=== PATIENT | male | born 1965 | race Caucasian/White ===

== ENCOUNTER 2020-07-02 13:15 | Emergency (ER) | payer MEDICAID ==
[~2020-07-02] VITALS: Ht 182.9 cm; Wt 92.5 kg
[2020-07-02] MEDS ORDERED: cloNIDine HCL 0.1 MG TAB PO ONE (14:15)
[2020-07-02 18:17] VITALS: BP 176/104
== END 2020-07-02 18:22 | disposition home or self-care (01) ==
LOC: ER 13:15
DX: J06.9 Acute upper respiratory infection, unspecified (principal); Z20.828 Contact with and (suspected) exposure to other viral communicable diseases
CPT/HCPCS: 36415; 71045; 87426

== ENCOUNTER 2022-02-14 07:48 | Emergency (ER) | payer MEDICAID ==
[~2022-02-14] VITALS: Ht 182.9 cm; Wt 102.5 kg
[2022-02-14 08:43] LABS: Urine Bacteria MOD /hpf (None Seen); Urine Blood Negative /uL (Negative); Urine Mucus FEW (None Seen); Urine Specific Gravity 1.023 (1.001-1.035); Urine WBC 1 /hpf (0 - 3)
[2022-02-14 08:45] LABS: Basophils # (auto) 0 10 ^3/uL (0-0.2); Basophils % (auto) 0.4 % (0.0-2.0); Eosinophils # (auto) 0 10 ^3/uL (0-0.8); Eosinophils % (auto) 0.2 % (0.0-7.0); Hematocrit 50.1 % (41.0-53.0); Hemoglobin 17.1 g/dL (13.5-17.5); Lymphocytes # (auto) 2.6 10 ^3/uL (0.4-5.4); Lymphocytes % (auto) 23.7 % (10.0-50.0); Mean Corpuscular Volume 88.1 fL (80.0-100.0); Monocytes # (auto) 1.2 10 ^3/uL (0-1.3); Monocytes % (auto) 10.6 % (0.0-12.0); Neutrophils # (auto) 7.1 10 ^3/uL (1.6-8.6); Neutrophils % (auto) 65.1 % (37.0-80.0); Red Blood Cells 5.69 10^6/uL (4.5-5.90); Red Cell Distribution Width 13.8 % (11.8-14.3); White Blood Cell 10.9 10^3/uL (4.4-10.8)
[2022-02-14 08:57] LABS: Amphetamine Screen, Urine NEGATIVE (NEGATIVE); Barbiturate Scree,Urine NEGATIVE (NEGATIVE); Benzodiazephine Screen, Urine NEGATIVE (NEGATIVE); Cannabinoid Screen, Urine POSITIVE (NEGATIVE); Cocaine Screen, Urine NEGATIVE (NEGATIVE); Opiate Scree,Urine NEGATIVE (NEGATIVE); Phencyclidine Screen, Urine NEGATIVE (NEGATIVE)
[2022-02-14 09:02] LABS: Albumin 4.6 g/dL (3.4-5.0); Calcium 9.5 mg/dL (8.5-10.1); Potassium 3.1 mmol/L (3.5-5.1)
[2022-02-14 09:06] LABS: Bilirubin, Total 1.2 mg/dL (0.2-1.0); Total Protein 8.3 g/dL (6.4-8.2)
[2022-02-14] MEDS ORDERED: PRE5T PO (10:53)
[2022-02-14 13:41] VITALS: BP 116/84
== END 2022-02-14 13:46 | disposition home or self-care (01) ==
LOC: ER 07:48
DX: R06.02 Shortness of breath (principal); J06.9 Acute upper respiratory infection, unspecified; I10 Essential (primary) hypertension
CPT/HCPCS: 36415; 71045; 80053; 80307; 81001; 83880; 84484; 85025; 85379; 93005

== ENCOUNTER 2022-05-23 13:21 | Emergency (ER) | payer MEDICAID ==
[~2022-05-23] VITALS: Ht 182.9 cm; Wt 105.5 kg
[~2022-05-23 13:21] MED LIST: PRE5T PO
[2022-05-23 14:02] VITALS: BP 134/95
[2022-05-23] MEDS ORDERED: SUMAtriptan SUCCINATE 6 MG/0.5 ML VL SC ONE (14:45)
[2022-05-23] MEDS ORDERED: SUMA50TA2 PO (15:24)
== END 2022-05-23 15:33 | disposition home or self-care (01) ==
LOC: ER 13:21
DX: G44.209 Tension-type headache, unspecified, not intractable (principal); I10 Essential (primary) hypertension; K21.9 Gastro-esophageal reflux disease without esophagitis
CPT/HCPCS: 70450; 96372; 99284; J3030

== ENCOUNTER 2022-09-25 09:21 | Emergency (ER) | payer MEDICAID ==
[~2022-09-25] VITALS: Ht 182.9 cm; Wt 100.0 kg
[~2022-09-25 09:21] MED LIST changes: +SUMA50TA2 PO
[2022-09-25 10:20] LABS: Albumin 4.7 g/dL (3.4-5.0); Calcium 9.9 mg/dL (8.5-10.1); Potassium 3.1 mmol/L (3.5-5.1)
[2022-09-25 10:23] LABS: Basophils # (auto) 0 10 ^3/uL (0-0.2); Basophils % (auto) 0.3 % (0.0-2.0); Eosinophils # (auto) 0 10 ^3/uL (0-0.8); Eosinophils % (auto) 0.2 % (0.0-7.0); Hematocrit 46.8 % (41.0-53.0); Hemoglobin 16.5 g/dL (13.5-17.5); Lymphocytes # (auto) 2.4 10 ^3/uL (0.4-5.4); Lymphocytes % (auto) 19.9 % (10.0-50.0); Mean Corpuscular Hemoglobin 30.8 pg (28.0-32.0); Mean Corpuscular Hgb Conc. 35.2 g/dL (32.0-36.0); Mean Corpuscular Volume 87.4 fL (80.0-100.0); Monocytes # (auto) 1.1 10 ^3/uL (0-1.3); Monocytes % (auto) 9.5 % (0.0-12.0); Neutrophils # (auto) 8.5 10 ^3/uL (1.6-8.6); Neutrophils % (auto) 70.1 % (37.0-80.0); Nucleated Red Blood Cells % 0.1 %; Red Blood Cells 5.35 10^6/uL (4.5-5.90); Red Cell Distribution Width 13.9 % (11.8-14.3); White Blood Cell 12.2 10^3/uL (4.4-10.8)
[2022-09-25 10:25] LABS: Bilirubin, Total 1.4 mg/dL (0.2-1.0); Total Protein 7.8 g/dL (6.4-8.2)
[2022-09-25] MEDS ORDERED: ALBUAER3 IN (11:12)
[2022-09-25] MEDS ORDERED: PRED20TA2 PO (11:12)
[2022-09-25] MEDS ORDERED: AZIT250T9 PO (11:12)
[2022-09-25] MEDS ORDERED: AZITHROMYCIN 250 MG TAB PO ONE (11:15)
[2022-09-25] MEDS ORDERED: predniSONE 20 MG TAB PO ONE (11:15)
[2022-09-25 11:17] LABS: Urine Bacteria NONE SEEN /hpf (None Seen); Urine Blood Negative /uL (Negative); Urine Hyaline Cast FEW /lpf (0 - 2); Urine Mucus FEW (None Seen); Urine Specific Gravity 1.032 (1.001-1.035); Urine WBC 3 /hpf (0 - 3)
[2022-09-25 12:51] VITALS: BP 142/99
== END 2022-09-25 12:53 | disposition home or self-care (01) ==
LOC: ER 09:21
DX: J06.9 Acute upper respiratory infection, unspecified (principal); I10 Essential (primary) hypertension; F41.9 Anxiety disorder, unspecified
CPT/HCPCS: 36415; 71045; 80053; 81001; 83880; 84484; 85025; 93005; 99285; J7512

== ENCOUNTER 2023-02-03 12:39 | Emergency (ER) | payer MEDICAID ==
[~2023-02-03] VITALS: Ht 182.9 cm; Wt 100.0 kg
[~2023-02-03 12:39] MED LIST changes: +ALBUAER3 IN; +AZIT-43 PO; +PRED20TA2 PO
[2023-02-03 12:51] VITALS: BP 165/105
[2023-02-03] MEDS ORDERED: SODIUM CHLORIDE 0.9% 1,000 ML IV ONE (13:00)
[2023-02-03 13:06] LABS: Basophils # (auto) 0 10 ^3/uL (0-0.2); Basophils % (auto) 0.3 % (0.0-2.0); Eosinophils # (auto) 0 10 ^3/uL (0-0.8); Hemoglobin 16.5 g/dL (13.5-17.5); Lymphocytes # (auto) 2.6 10 ^3/uL (0.4-5.4); Mean Corpuscular Hemoglobin 30.1 pg (28.0-32.0); Mean Corpuscular Volume 91.2 fL (80.0-100.0); Monocytes % (auto) 7.4 % (0.0-12.0); Neutrophils # (auto) 10.1 10 ^3/uL (1.6-8.6); Neutrophils % (auto) 73.3 % (37.0-80.0); Nucleated Red Blood Cells % 0.1 %; Red Blood Cells 5.48 10^6/uL (4.5-5.90); White Blood Cell 13.7 10^3/uL (4.4-10.8)
[2023-02-03 13:26] LABS: Albumin 5.1 g/dL (3.4-5.0); Calcium 10.1 mg/dL (8.5-10.1); Potassium 3.2 mmol/L (3.5-5.1)
[2023-02-03 13:29] LABS: BUN/Creatinine Ratio 13.5 (10.0-20.0); Bilirubin, Total 1.2 mg/dL (0.2-1.0); Total Protein 8.1 g/dL (6.4-8.2)
[2023-02-03 14:19] LABS: Urine Bacteria NONE SEEN /hpf (None Seen); Urine Blood Negative /uL (Negative); Urine Mucus FEW (None Seen); Urine Specific Gravity 1.032 (1.001-1.035); Urine WBC 3 /hpf (0 - 3)
[2023-02-03 14:28] LABS: Alcohol, Urine < 3.0 mg/dL (0-10); Barbiturate Scree,Urine NEGATIVE (NEGATIVE)
[2023-02-03 14:37] LABS: Amphetamine Screen, Urine NEGATIVE (NEGATIVE); Benzodiazephine Screen, Urine NEGATIVE (NEGATIVE); Cannabinoid Screen, Urine POSITIVE (NEGATIVE); Cocaine Screen, Urine NEGATIVE (NEGATIVE); Opiate Scree,Urine NEGATIVE (NEGATIVE); Phencyclidine Screen, Urine NEGATIVE (NEGATIVE)
== END 2023-02-03 15:35 | disposition left against medical advice (07) ==
LOC: ER 12:39
DX: E87.6 Hypokalemia (principal); R00.2 Palpitations; F15.10 Other stimulant abuse, uncomplicated; I10 Essential (primary) hypertension; Z90.49 Acquired absence of other specified parts of digestive tract; Z79.899 Other long term (current) drug therapy
CPT/HCPCS: 36415; 80053; 80307; 81001; 84484; 85025; 93005; 96360; 99284; J7030

== ENCOUNTER 2023-02-08 06:59 | Inpatient (IN) | payer MEDICAID ==
[~2023-02-08] VITALS: Ht 182.9 cm; Wt 96.0 kg
[2023-02-08 07:39] LABS: Basophils # (auto) 0.1 10 ^3/uL (0-0.2); Eosinophils # (auto) 0 10 ^3/uL (0-0.8); Eosinophils % (auto) 0.2 % (0.0-7.0); Hematocrit 50.4 % (41.0-53.0); Hemoglobin 17.5 g/dL (13.5-17.5); Lymphocytes # (auto) 1.5 10 ^3/uL (0.4-5.4); Lymphocytes % (auto) 18.4 % (10.0-50.0); Mean Corpuscular Hemoglobin 30.8 pg (28.0-32.0); Mean Corpuscular Hgb Conc. 34.7 g/dL (32.0-36.0); Mean Corpuscular Volume 88.9 fL (80.0-100.0); Monocytes # (auto) 0.8 10 ^3/uL (0-1.3); Monocytes % (auto) 9.9 % (0.0-12.0); Neutrophils # (auto) 5.8 10 ^3/uL (1.6-8.6); Neutrophils % (auto) 70.5 % (37.0-80.0); Nucleated Red Blood Cells % 0.2 %; Red Blood Cells 5.67 10^6/uL (4.5-5.90); Red Cell Distribution Width 13.5 % (11.8-14.3); White Blood Cell 8.2 10^3/uL (4.4-10.8)
[2023-02-08 07:45] LABS: Albumin 4.4 g/dL (3.4-5.0); Calcium 9.9 mg/dL (8.5-10.1)
[2023-02-08 07:48] LABS: BUN/Creatinine Ratio 14.9 (10.0-20.0); Bilirubin, Total 1.3 mg/dL (0.2-1.0); Total Protein 7.9 g/dL (6.4-8.2)
[2023-02-08 07:58] LABS: Potassium 2.7 mmol/L (3.5-5.1)
[2023-02-08] MEDS ORDERED: POTASSIUM EFFERVESENT TAB 25 MEQ PO ONE (08:30)
[2023-02-08] MEDS ORDERED: DEXTROSE (50%) 50ML SYRG IV PRN (15:00)
[2023-02-08] MEDS ORDERED: ONDANSETRON HCL 4 MG/2 ML VIAL IV PRN (15:00)
[2023-02-08] MEDS ORDERED: MORPHINE SULFATE 4 MG/ML SYR/VIAL IV PRN (15:00)
[2023-02-08] MEDS ORDERED: NITROGLYCERIN 0.4 MG SL TAB SL PRN (15:00)
[2023-02-08] MEDS: SODIUM CHLORIDE 0.9% 1,000 ML IV SCH (15:15)
[2023-02-08 15:59] LABS: INR 1.09 (0.9-1.15)
[2023-02-08] MEDS: InsuLIN REG 1unit/0.01ml Soln (100units/ml) SC SCH ×2 (17:00→21:53)
[2023-02-08 17:10] LABS: Urine Bacteria NONE SEEN /hpf (None Seen); Urine Blood Negative /uL (Negative); Urine Mucus FEW (None Seen); Urine Specific Gravity 1.023 (1.001-1.035); Urine WBC 1 /hpf (0 - 3)
[2023-02-08] MEDS: ACCU-CHEK COMFORT CURVE STRIP VI SCH ×2 (17:14→21:43)
[2023-02-08 17:30] LABS: Sodium Urine 72 mmol/L (40-220)
[2023-02-08 17:32] LABS: Creatinine, Urine 282 mg/dL (30.0-125.0)
[2023-02-08 19:30] VITALS: PULSE 94; RESP 16; O2SAT 96
[2023-02-08] MEDS: ATORVASTATIN 20 MG TAB PO SCH (21:51)
[2023-02-08] MEDS: METOPROLOL TARTRATE 50 MG TAB PO SCH (21:52)
[2023-02-08] MEDS: ENOXAPARIN SOD 100 MG/1 ML SYRINGE SC SCH (21:52)
[2023-02-09] MEDS: SODIUM CHLORIDE 0.9% 1,000 ML IV SCH ×5 (01:00→23:34)
[2023-02-09] MEDS: InsuLIN REG 1unit/0.01ml Soln (100units/ml) SC SCH ×4 (06:27→22:00)
[2023-02-09] MEDS: ACCU-CHEK COMFORT CURVE STRIP VI SCH ×4 (06:27→22:00)
[2023-02-09 06:36] LABS: Basophils # (auto) 0 10 ^3/uL (0-0.2); Basophils % (auto) 0.5 % (0.0-2.0); Eosinophils # (auto) 0 10 ^3/uL (0-0.8); Eosinophils % (auto) 0.4 % (0.0-7.0); Hematocrit 49.5 % (41.0-53.0); Hemoglobin 17.2 g/dL (13.5-17.5); Lymphocytes # (auto) 2.6 10 ^3/uL (0.4-5.4); Mean Corpuscular Hemoglobin 30.8 pg (28.0-32.0); Mean Corpuscular Hgb Conc. 34.7 g/dL (32.0-36.0); Mean Corpuscular Volume 88.9 fL (80.0-100.0); Monocytes # (auto) 1.1 10 ^3/uL (0-1.3); Monocytes % (auto) 11.4 % (0.0-12.0); Neutrophils # (auto) 5.5 10 ^3/uL (1.6-8.6); Neutrophils % (auto) 59.7 % (37.0-80.0); Nucleated Red Blood Cells % 0.1 %; Red Blood Cells 5.57 10^6/uL (4.5-5.90); Red Cell Distribution Width 13.8 % (11.8-14.3); White Blood Cell 9.3 10^3/uL (4.4-10.8)
[2023-02-09 06:39] LABS: Calcium 9.5 mg/dL (8.5-10.1)
[2023-02-09 06:46] LABS: BUN/Creatinine Ratio 18.5 (10.0-20.0); Bilirubin, Total 0.9 mg/dL (0.2-1.0); Total Protein 7.6 g/dL (6.4-8.2)
[2023-02-09 06:53] LABS: Potassium 2.9 mmol/L (3.5-5.1)
[2023-02-09] MEDS ORDERED: POTASSIUM CHL 20 Meq TABLET PO ONE (07:45)
[2023-02-09 08:42] VITALS: PULSE 79; RESP 18; O2SAT 96
[2023-02-09] MEDS: POTASSIUM CHL 20MEQ/100ML 100 ML IV SCH ×2 (09:35→09:45)
[2023-02-09] MEDS: DOCUSATE SOD 100 MG CAP PO SCH (10:00)
[2023-02-09 10:18] LABS: Cholesterol 121 mg/dL (< 200); HDL Cholesterol 40 mg/dL (40-59); LDL Cholesterol 72 mg/dL (< 100); Triglycerides 113 mg/dL (< 150)
[2023-02-09] MEDS: PANTOPRAZOLE 40 MG/10 ML VIAL INJ IV SCH (10:42)
[2023-02-09] MEDS: ASPirin 81 mg TAB PO SCH (10:42)
[2023-02-09] MEDS: ENOXAPARIN SOD 100 MG/1 ML SYRINGE SC SCH ×2 (10:44→22:52)
[2023-02-09] MEDS: METOPROLOL TARTRATE 50 MG TAB PO SCH ×2 (10:44→22:53)
[2023-02-09] MEDS ORDERED: POTASSIUM CHLORIDE 60 MEQ, LIDOCAINE 1% (LOCAL ANESTH.) 6 ML in SODIUM CHL 0.9% 500 ML IV ONE (15:15)
[2023-02-09] MEDS ORDERED: POTASSIUM EFFERVESENT TAB 25 MEQ PO ONE (15:15)
[2023-02-09 22:30] VITALS: PULSE 65
[2023-02-09] MEDS: ATORVASTATIN 20 MG TAB PO SCH (22:53)
[2023-02-09] MEDS: POTASSIUM EFFERVESENT TAB 25 MEQ PO SCH (22:54)
[2023-02-10] VITALS (8 sets, daily range): BP systolic 117–160; BP diastolic 76–87; PULSE 59–84; RESP 17–18; TEMP 97.2–98.3; O2SAT 93–100
[2023-02-10] MEDS: ACETAMINOPHEN 325 MG TAB PO PRN ×3 (03:17→21:51)
[2023-02-10 05:57] LABS: Calcium 9.1 mg/dL (8.5-10.1)
[2023-02-10] MEDS: ACCU-CHEK COMFORT CURVE STRIP VI SCH ×4 (06:11→21:52)
[2023-02-10] MEDS: InsuLIN REG 1unit/0.01ml Soln (100units/ml) SC SCH ×4 (06:13→21:53)
[2023-02-10] MEDS: SODIUM CHLORIDE 0.9% 1,000 ML IV SCH ×4 (06:15→14:50)
[2023-02-10] MEDS ORDERED: POTASSIUM EFFERVESENT TAB 25 MEQ PO ONE (07:45)
[2023-02-10] MEDS ORDERED: POTASSIUM CHLORIDE 60 MEQ, LIDOCAINE 1% (LOCAL ANESTH.) 6 ML in SODIUM CHL 0.9% 500 ML IV ONE (07:45)
[2023-02-10] MEDS: LISINOPRIL 20 MG TAB PO SCH (08:19)
[2023-02-10] MEDS: DOCUSATE SOD 100 MG CAP PO SCH (08:19)
[2023-02-10] MEDS: METOPROLOL TARTRATE 50 MG TAB PO SCH ×2 (08:19→21:51)
[2023-02-10] MEDS: ASPirin 81 mg TAB PO SCH (08:19)
[2023-02-10] MEDS: POTASSIUM EFFERVESENT TAB 25 MEQ PO SCH ×2 (08:21→23:55)
[2023-02-10] MEDS: PANTOPRAZOLE 40 MG/10 ML VIAL INJ IV SCH (08:21)
[2023-02-10] MEDS: ENOXAPARIN SOD 100 MG/1 ML SYRINGE SC SCH ×2 (08:21→21:53)
[2023-02-10] MEDS: ATORVASTATIN 20 MG TAB PO SCH (21:52)
[2023-02-11] MEDS: SODIUM CHLORIDE 0.9% 1,000 ML IV SCH ×4 (03:00→13:00)
[2023-02-11 05:00] VITALS: BP 129/77; PULSE 73; RESP 18; TEMP 97.6; O2SAT 96
[2023-02-11 06:16] LABS: Potassium 3.2 mmol/L (3.5-5.1)
[2023-02-11 06:22] LABS: BUN/Creatinine Ratio 15.4 (10.0-20.0); Calcium 9.2 mg/dL (8.5-10.1)
[2023-02-11] MEDS: ACCU-CHEK COMFORT CURVE STRIP VI SCH ×2 (06:52→11:01)
[2023-02-11] MEDS: InsuLIN REG 1unit/0.01ml Soln (100units/ml) SC SCH ×2 (06:52→11:03)
[2023-02-11 08:00] VITALS: BP 122/77; PULSE 74; PULSE 90; RESP 18; TEMP 97.8; O2SAT 98
[2023-02-11 09:00] VITALS: BP 122/77; PULSE 74; RESP 18; TEMP 97.8; O2SAT 98
[2023-02-11] MEDS: DOCUSATE SOD 100 MG CAP PO SCH (09:34)
[2023-02-11] MEDS: ASPirin 81 mg TAB PO SCH (09:34)
[2023-02-11] MEDS: METOPROLOL TARTRATE 50 MG TAB PO SCH (09:34)
[2023-02-11] MEDS: POTASSIUM EFFERVESENT TAB 25 MEQ PO SCH (09:35)
[2023-02-11] MEDS: PANTOPRAZOLE 40 MG/10 ML VIAL INJ IV SCH (09:35)
[2023-02-11] MEDS: ENOXAPARIN SOD 100 MG/1 ML SYRINGE SC SCH (09:35)
[2023-02-11] MEDS: LISINOPRIL 20 MG TAB PO SCH (09:35)
[2023-02-11 13:13] VITALS: BP 125/82; PULSE 72; RESP 20; TEMP 98.4; O2SAT 100
[2023-02-11] MEDS ORDERED: LISI40TA16 PO (15:32)
[2023-02-11] MEDS ORDERED: ALPR0.25 PO (15:32)
[2023-02-11] MEDS ORDERED: METO25TA36 PO (15:32)
[2023-02-11 16:25] VITALS: BP_SYST 114; BP_SYST 125; BP_DIAS 78; BP_DIAS 82; PULSE 72; PULSE 85; RESP 20; TEMP 98.4; TEMP 98.7; O2SAT 100; O2SAT 96
== END 2023-02-11 16:48 | disposition home or self-care (01) | DRG 198 ==
LOC: ER 06:59 → EDBD 06:59 → TELE 14:57 → TELE-CENTR 02-09 22:30
PROVIDERS: ADMIT Nurse Practitioner Family; ATTEND Nurse Practitioner Acute Care
DX: I24.9 Acute ischemic heart disease, unspecified (principal); N17.0 Acute kidney failure with tubular necrosis; I11.9 Hypertensive heart disease without heart failure; E11.65 Type 2 diabetes mellitus with hyperglycemia; E86.9 Volume depletion, unspecified; E87.6 Hypokalemia; R00.0 Tachycardia, unspecified; F41.9 Anxiety disorder, unspecified; F12.90 Cannabis use, unspecified, uncomplicated; K21.9 Gastro-esophageal reflux disease without esophagitis; G43.909 Migraine, unspecified, not intractable, without status migrainosus; Z90.49 Acquired absence of other specified parts of digestive tract
CPT/HCPCS: 36415; 71045; 80048; 80053; 80061; 80320; 81001; 82570; 82962; 83036; 83735; 84100; 84132; 84300; 84443; 84484; 85025; 85379; 85610; 93005; 93306; 96360; 99291; C9113; G0378; J1815; J2001; J2405; J3480